=== PATIENT | male | born 1955 | race Caucasian/White ===

== ENCOUNTER 2016-11-13 07:35 | Day surgery (SDC) | payer MEDICARE ==
--- NOTE | 2016-11-09 10:25 | PCM.ANEPRE ---
Anesthesia Pre-Op Review Reason for Review: ef 30-35%- mod-severe COPD Additional Comments -Hx of ischemic cardiomyopathy on ASA, statin, BB. EF 35%. Assure patient optimized on day of surgery -Hx of mod-severe COPD on intermittent home O2. on inhaled steroid, long acting anticholenergic and short acting beta agonist, as prescribed by Pulmonology. Ideally, patients would be on LONG acting Beta agonist (LABA) with evidence of decreased exacerbations. I am unclear why he is NOT on LABA. There is some evidence that LABA are at increased risks of arrhythmia with these medications. He is obviously a low EF in Afib, and may not tolerate arrhythmia, explaining why he does not have a LABA. Per surgeon note, patient will be done with sedation. Given that we can likely not instrument the airway, I would NOT delay this case for months to initiate LABA. However, if patient refuses MAC, regional, or epidural/spinal (in setting of low EF, would have to be cautious--and if off coumadin with normal INR), or anesthesia feels that he is a poor candidate for these options, and GA is necessary, anesthesia may elect to cancel this case for further optimization by pulmonary. I feel this is very unlikely though, and I do not feel inclined to cancel at this time. Jacques Raphael MD November 09, 2016 10:25
[~2016-11-13] VITALS: Ht 180.3 cm; Wt 139.2 kg
[~2016-11-13 07:35] MED LIST: ACLI400A2 IH; ALBU8.5H2 INHALATION; ALPH200C3 PO; AMMO385C5 TP; ASPI-973 PO; ATRINH INH; CARV12.5 PO; CHOL200025 PO; CLOB15CR3 TOP; CYCL10TA9 PO; CeFAZolin Inj 2 GM in IV Premix 1 EACH IV ONE; CeFAZolin Inj 3 GM in IV Premix IV ONE; DIGO125T73 PO; DOCU-41 PO; DULO30CA50 PO; ECON15CR10 TOP; FLUT12AE8 IH; FLUT16SP NS; GABA-502 PO; GABA600T2 PO; INSLIS SUBQ; INSU100I18 SUBQ; INSU100V7 SUBQ; KEN25CR EXT; KTC2C15 TP; LIP40 PO; LISI2.5T PO; MUPI22OI2 TOP; NITR0.4T SL; OMEP20TA86 PO; POLY17PO6 PO; SENN-133 PO; TAMS0.4C29 PO; TORS20TA3 PO; [UNRECOGNIZED DRUG - CODE] TP
[2016-11-13] MEDS ORDERED: Propofol 10,000 mCg/mL 20 mL Inj ONE (07:36)
[2016-11-13] MEDS ORDERED: Ketamine 10 mg/mL 20 mL Inj ONE (07:36)
[2016-11-13] MEDS ORDERED: WARF5TAB7 PO (08:09)
[2016-11-13 08:13] VITALS: BP 142/74; PULSE 78; RESP 16; O2SAT 100
[2016-11-13] MEDS: Lactated Ringer's 1,000 ML IV SCH ×2 (08:21→09:28)
[2016-11-13] MEDS ORDERED: Insulin LISPRO 300 Unit/3 mL Inj ONE (08:21)
[2016-11-13] MEDS ORDERED: Insulin LISPRO 300 Unit/3 mL Inj SUBQ ONE (08:40)
--- NOTE | 2016-11-13 09:27 | PCM.HPANE ---
Patient Data Date of Service: November 13, 2016 Surgeon Admitting Provider: Attending Provider:Jethro Guilolry MD Primary Care Physician:Geovanny Maya MD Other Provider:Ubaldo Khoury Anesthesia Reason for Visit Polyneuropathy Ht/WT & BMI Height (Feet): 5 Height (Inches): 11 Weight (Kilograms): 139.25 Body Mass Index 42.00 Allergies Coded Allergies: No Known Allergies (Unverified , 06/24/16) Past Anesthesia History Anesthesia History: Denies:: Abnormal Airway, Anesthesia Reactions, Difficult Intubation, Fam Anesthesia Reaction, Fam Malignant Hypertherm, Malignant Hyperthermia Diabetes History Hx Diabetes?: Yes Type of Diabetes: Type II Glycemic Control: Insulin & Oral Medication Current Bedside Blood Glucose: 223 MRSA MRSA: No Medications Blood Thinner: Aspirin, Coumadin Home Meds Incl Beta Jannet: Yes Date Beta Jannet Taken: November 13, 2016 Time Beta Jannet Taken: 0600 Reported Medications Warfarin Sodium 5 Mg Tablet5 Mg PO DAILY 30 Days Ref 0 11/13/16 Cholecalciferol (Vitamin D3) (Vitamin D3)2,000 Unit Tablet2,000 Unit PO DAILY 11/08/16 Urea/Hydrophilic Cream (Betamide Lotion)120 Ml Skkeke795 Ml TP DAILY 11/08/16 Aclidinium Dexter (Tudorza Pressair)400 Mcg Aer.pow.ba400 Mcg IH DAILY 11/08/16 Triamcinolone Acet (Triamcinolone Acetonide Cream)1 Applic/0.25 Gm Cr1 Applic EXT BID #60 GM Ref 0 11/08/16 Torsemide 20 Mg Tacpav21 Mg PO DAILY 30 Days Ref 0 11/08/16 Tamsulosin ER 0.4 Mg Cap.er.24h0.4 Mg PO DAILY Ref 0 11/08/16 Sennosides (Senna)8.6 Mg Tablet8.6 Mg PO PRN For Constipation 11/08/16 Albuterol HFA (Proair HFA)8.5 Gm Hfa.aer.ad2 Puffs INHALATION Q4H PRN For Shortness of Breath #1 INHALER 11/08/16 Omeprazole 20 Mg Tablet.dr20 Mg PO DAILY 11/08/16 Nitroglycerin SL (Nitrostat)0.4 Mg Tab.subl0.4 Mg SL Q5MIN PRN For Chest Pain # 1 BOTTLE 11/08/16 Mupirocin (Mupirocin Ointment)22 Gm Oint...g.1 Applic TOP TID #1 TUBE Ref 0 11/08/16 Polyethylene Glycol 3350 (Miralax)17 Gm Powd.pack17 Gm PO DAILY 11/08/16 Lisinopril 2.5 Mg Tablet2.5 Mg PO DAILY 30 Days Ref 0 11/08/16 Atorvastatin (Lipitor)40 Mg Jbklmt05 Mg PO DAILY Ref 0 11/08/16 Insulin Glargine (Lantus U100 Insulin Vial)100 Unit/Ml Vial50 Unit SUBQ BID #1 VIAL Ref 0 11/08/16 Ketoconazole 15 Gm Cream..g.15 Gm TP PRN skin irritation 11/08/16 Insulin Lispro (HumaLOG U100 Insulin Pen)100 Unit/1 Ml Insuln.pen20 Unit SUBQ QPM #1 PENINJ Ref 0 Blood Sugar Lispro Correction <151 0 units 151-175 1 unit 176-200 2 units 201-225 3 units 226-250 4 units 251-275 5 units 276-300 6 units 301-325 7 units 326-350 8 units 351-375 9 units 376-400 10 units >400 12 units Check blood sugars before meals and at bedtime. Use correction factor only before meals. 11/08/16 Insulin Human Lispro (HumaLOG U100 Insulin Vial)100 Unit/Ml Unit16 Unit SUBQ am/ noon #1 VIAL Ref 0 Check blood sugars before meals and at bedtime. Use correction factor only before meals. Blood Sugar Lispro Correction: <151, 0 units; 151-175, 1 unit; 176-200, 2 units; 201-225, 3 units; 226-250, 4 units; 251-275, 5 units; 276-300, 6 units; 301-325, 7 units; 326-350, 8 units; 351-375, 9 units; 376-400, 10 units; >400, 12 units. 11/08/16 Gabapentin 600 Mg Szjzgz909 Mg PO TID Ref 0 11/08/16 Gabapentin 300 Mg Wfzfnde091 Mg PO HS Ref 0 11/08/16 Fluticasone Propionate (Fluticasone Propionate Nasal)16 Gm [place].susp2 [place] NS BID #16 GM Ref 0 11/08/16 Fluticasone Propionate (Flovent HFA 110 mcg)12 Gm Aer.w.adap1 Puff IH BID #12 GM Ref 0 11/08/16 Econazole Nitrate 15 Gm Cream..g.1 Appl TOP BID #1 TUBE 11/08/16 Duloxetine 30 Mg Capsule.dr30 Mg PO DAILY Ref 0 11/08/16 Digoxin 125 Mcg Tresbu276 Mcg PO DAILY #30 TABLET Ref 0 11/08/16 Cyclobenzaprine 10 Mg Tablet5 Mg PO TID PRN Spasm 11/08/16 Carvedilol (Coreg)12.5 Mg Tvtnod29.5 Mg PO BID Ref 0 11/08/16 Docusate Sodium (Colace)100 Mg Ppjkrfw694 Mg PO TID PRN For Constipation Ref 0 11/08/16 Clobetasol Propionate/Emoll (Clobetasol Emollient 0.05% Crm)15 Gm Cream..g.1 Appl TOP BID #1 TUBE 11/08/16 Ipratropium Dexter (Atrovent HFA)200 Puff/12.9 Gm Inhaler2 Puff INH QID #1 INH Ref 0 11/08/16 Aspirin 81 Mg Mtfubr30 Mg PO DAILY Ref 0 11/08/16 Ammonium Lactate 140 Gm Cream..g.140 Gm TP DAILY 11/08/16 Alpha Lipoic Acid 200 Mg Zslrsjw455 Mg PO BID 11/08/16 Discontinued Reported Medications Aspirin Chew 81 Mg Tab.chew81 Mg PO DAILY 10/08/13 Nitroglycerin SL (Nitrostat)0.4 Mg Tab.subl0.4 Mg SL Q5MIN PRN For Chest Pain 10/08/13 Metformin 1,000 Mg Tablet1,000 Mg PO BID 30 Days Ref 0 10/08/13 Omeprazole Magnesium (Omeprazole)20 Mg Capsule.dr20 Mg PO DAILYAC 30 Days Ref 0 10/08/13 Warfarin Sodium 5 Mg Tkrodk06 Mg PO DAILY 30 Days Ref 0 10/08/13 Warfarin Sodium 2.5 Mg Tablet2.5 Mg PO Tuesdays 30 Days Ref 0 Take one tablet IN ADDITION TO the 10mg tablet on TUESDAYS ONLY. 10/08/13 Docusate Sodium (Colace)100 Mg [place]277 Mg PO BID PRN For Constipation 30 Days Ref 0 10/08/13 Carvedilol (Coreg)12.5 Mg Olafya58.5 Mg PO BIDWM 10/08/13 Tamsulosin ER 0.4 Mg Cap.er.24h0.4 Mg PO DAILY 30 Days Ref 0 10/08/13 Gabapentin 600 Mg Nbtabu637 Mg PO TID 10/08/13 Gabapentin-Expunged Drug, Do Not Renew! (Neurontin-Expunged Drug, Do Not Renew!) 300 Mg Epxzfvh301 Mg PO HS 03/17/13 Potassium Chl-Expunged Drug, Do Not Renew! (U-Utt-Hvevbilk Drug, Do Not Renew!) 20 Meq Tab.er.prt20 Meq PO DAILY 11/03/12 Insulin Lispro-Expunged Drug, Do Not Renew! (Humalog-Expunged Drug, Do Not Renew !)100 U/Ml Vial5 U SQ Lunch & Dinner Inject subcutaneously as per insulin sliding scale protocol 11/03/12 Insulin GLARGine-Expunged Drug, Do Not Renew! (Lantus-Expunged Drug, Do Not Renew!)100 Unit/Ml Unit50 Unit SUBQ BID LD 15U SQ 03/16/ PM 11/03/12 Digoxin-Expunged Drug, Do Not Renew! 125 Mcg Tablet0.25 Mg PO DAILY #30 TAB 11/03/12 Discontinued Scripts Atorvastatin Calcium 40 Mg Uplibf86 Mg PO DAILY #30 TABLET Prov:ROMY ADAN P DO 06/25/16 Azithromycin (Zithromax)250 Mg Afmxsd219 Mg PO DAILY #4 TABLET Prov:ROMY ADAN P DO 06/25/16 Duloxetine (Cymbalta)30 Mg Capsule.dr30 Mg PO DAILY #30 Prov:ROMY DAAN P DO 06/25/16 Lisinopril 5 Mg Tablet2.5 Mg PO DAILY #30 TABLET Prov:ROMY ADAN P DO 06/25/16 Prednisone (Deltasone)20 Mg Hweaci45 Mg PO DAILY #4 TABLET Prov:ROMY ADAN P DO 06/25/16 Torsemide (Demadex)20 Mg Icjptg63 Mg PO DAILY #30 TABLET Prov:ROMY ADAN P DO 06/25/16 Acetaminophen/Cod-Expunged Drug, Do Not Renew (Tylenol w/Codeine #3-Expunged Drug, Do Not Re)1 Each Tablet1-2 Tab PO Q4-6H #14 TAB Ref 0 FOR PAIN Prov:Wood Ramirez PA-C 03/18/13 History History of ENT Problems?: No HEENT History: Denies:: Abnormal Airway Cataracts Difficult Intubation Dysphagia Hearing Problem Sinus Problem Denture Type: Full- Upper Teeth Condition: Missing Teeth Other History/Comment Patient advised to remove dentures. Pt declines. Discussed possible damage to dentures. Hx of Heart Problems?: Yes Cardiovascular History: Positive for:: Atrial Fibrillation Cardiac Surgery (Stent to RCA Sep 2012) Chest Pain Edema Irregular Heartbeat (A fib) Pacemaker Denies:: AICD Congestive Heart Failure Heart Murmur Hypertension Thrombophlebitis Valvular Heart Disease Hx of Respiratory Problem?: Yes Respiratory History: Positive for:: Dyspnea (with walkin uphill or taking stairs) Oxygen Administration (occasional supplemental O2) Denies:: Asthma COPD Chest Surgery Cough Emphysema Hemoptysis Pneumonia Tuberculosis Use of C-PAP Machine Hx Neurologic Problems?: Yes Neurological History: Positive for:: CVA (Aug 2012 - can't always express thoughts.) Denies:: Dementia Dizziness Headaches Parkinson's Disease Seizures Other Neurological Pertinent: polyneuropathy- ? dyemyleinating- current admission problem Hx of GI Problems?: No Hx of Problems?: No HX of Peritoneal Dialysis: No Male Hx: Denies:: Prostate Problems Skin History: Denies:: History Skin Disorders? Pressure Ulcers Hx Musculoskeletal Problems?: No Musculoskeletal History: Denies:: Joint Replacement Musculoskeletal Trauma Hx of Psycho/Social Problems?: No Psycho Social History: Denies:: Anxiety Bipolar Disorder Hx Depression Suicide Attempt Hx Surgeries?: Yes (pacemaker 03/17/13) Hx Any Other Health Problems?: Yes Other History: Positive for:: Hospitalization (CVA) Denies:: Cancer Endocrine Disease Thyroid Disease History Blood Transfusions: Denies:: Blood Transfuse Reaction Blood Transfusions Hx Diabetes: YesBedside Blood Glucose: 223 Hx Alcohol Use: NoHx Substance Use: No Smoking Status: Former Smoker Have You Smoked inLast 12 mo: No Stop/Bang S-Snoring: Do You Snore Loudly: No T-Tired: feel tired, fatigued: No O-Obsered: Observed not breath: No P-Blood Pressure: treated: Yes B- Body Mass Index > 35 kg/m2: Yes A- Age over 50: Yes N- Neck Large Circumference: Yes G- Gender Male: Yes JEANNIE Total Score: 5 JEANNIE Risk Assessment: High Risk, =/>3 Yes JEANNIE Category 3: Yes Risk Assessment Category Category 1A: Patient has history of documented sleep apnea, and HAS NOT received any narcotic, sedative or anesthesia administration during this stay. Category 1B: Patient has history of documented sleep apnea, and HAS received any narcotic , sedative or anesthesia administration during this stay Category 2: Patient has SUSPECTED Obstructive Sleep Apnea, and HAS received any narcotic , sedative or anesthesia administration during this stay. Category 3: Patient has SUSPECTED Obstructive Sleep Apnea and HAS NOT received narcotic, sedative or anesthesia administration during this stay. Category 4: Outpatient in Procedural Areas with known sleep apnea or who screen positive for High Risk via the STOP/BANG questionnaire. Exam Exam Vital Signs Vital Signs Date Time Temp Pulse Resp B/P Pulse Ox O2 Delivery O2 Flow Rate FiO2 11/13/16 08:13 36.2 78 16 142/74 100 Room Air General Appearance: Alert, Oriented X3, Cooperative HEENT/AIRWAY: MP 2 Lungs: Clear to Auscultation Heart: Exam Unremarkable Meds/Labs/Diagnostics Admission Meds Current Medications Lactated Ringer's (Lr) 1,000 ml @ 120 mls/hr Q8H20M IV Last administered on t 08:21; Start 11/13/16 at 05:00; Stop 11/13/16 at 13:19 Bedside Blood Glucose: 223 Labs Test 11/13/16 08:00 Prothrombin Time 10.7sec (8.1-12.5) Prothromb Time International Ratio 1.00ratio Plan Impression Patient chart reviewed, patient interviewed and anesthestic plan with risks, benefits, and alternatives discussed, and informed consent obtained. NPO per Anesth. Guidelines: Yes ASA Physical Status: ASA3 Severe Disease Anesthetic Plan: MAC Bene/Risks/Altern/Consents: Yes HP Complete Prior to Induction: Yes Jacques Jimenez MD November 13, 2016 09:27
[2016-11-13] MEDS ORDERED: Bupivacaine-MPF 0.5% 30 mL Inj INFILTRATE ONE (09:52)
[2016-11-13] MEDS ORDERED: Lactated Ringer's 500 ML IV PRN (10:12)
[2016-11-13] MEDS ORDERED: Lactated Ringer's 1,000 ML IV SCH (10:12)
[2016-11-13] MEDS ORDERED: HYDROcodone-APAP 5-325 mg Tablet PO PRN (10:15)
[2016-11-13] MEDS ORDERED: HYDROmorphone 1 mg/mL Inj IVPUSH PRN (10:15)
[2016-11-13] MEDS ORDERED: Dexamethasone 4 mg/mL Inj IVPUSH PRN (10:15)
[2016-11-13] MEDS ORDERED: fentaNYL-PF 50 mCg/mL 2 mL Inj IVPUSH PRN (10:15)
[2016-11-13] MEDS ORDERED: Phenylephrine 10,000 mCg/mL Inj IVPUSH PRN (10:15)
[2016-11-13] MEDS ORDERED: Ondansetron 2 mg/mL 2 mL Inj IVPUSH PRN (10:15)
[2016-11-13] MEDS ORDERED: MetoCLOpramide 5 mg/mL 2 mL Inj IVPUSH PRN (10:15)
[2016-11-13] MEDS ORDERED: EPHEDrine Sulfate 50 mg/mL Inj IVPUSH PRN (10:15)
--- NOTE | 2016-11-13 10:17 | PCM.DISURG ---
Surgical Discharge Instruction Date of Service November 13, 2016 Dates of Hospitalization Date of Hospital Admission Providers Admitting Physician: Primary Care Physician: Geovanny Maya MD Attending Physician: Jethro Guillory MD Discharge Diagnosis Discharge Diagnosis Peripheral neuropathy Diet Discharge Diet: No restrictions Activity Discharge Activity-General: No restrictions Dressing and Incisional Care Dressing Care: Allow Steri Stripes to fall off, Remove outer dressing after 24 hrs Hygiene: May shower after (24 hours) Follow Up Plan Follow Up Plan In the general surgery [place] postoperative clinic in 2-3 weeks for a wound check. Pathology will be discussed with Dr. Cartagena when available. Call your provider for: Fever (over 101.5), Discharge @ incision, pus discharge Jethro Guillory MD November 13, 2016 10:17
--- NOTE | 2016-11-13 10:23 | PCM.SURGOP ---
Surgical Operative Report Date of Service: November 13, 2016 Pre Operative Diagnosis Polyneuropathy Post Operative Diagnosis Same Procedure: Right sural nerve biopsy Surgeon and Home Visitor: Surgeon: Jethro Guillory MD Assistants: Mateo Tinoco PA-C Indication for Procedure 61-year-old man who had a stroke in 2012 with right-sided weakness, who has had progressive neck pain and neuropathy since that time. He had nerve conduction studies which showed prolonged onset latency and decreased velocity, suggestive of a severe sensorimotor polyneuropathy, possible demyelinating disorder. After discussion of risks and benefits, he agreed to proceed with a right sural nerve biopsy. Findings: The right sural nerve was grossly normal, 4 cm was resected and sent to the [facility] for pathology. Procedure Details Procedural sedation was achieved. He was placed in the left lateral decubitus position, and the right leg was prepped and draped in wide sterile fashion. A procedural pause was performed according to the SCOAP checklist, and all were found to be in agreement. The skin was anesthetized with a mixture of 1% lidocaine and half percent Marcaine. A 5cm longitudinal incision was made along the lateral border of the Achilles tendon. Dissection was carried down through the subcutaneous tissue until the Achilles tendon was identified. Just superficial to the tendon, the right sural nerve and the right lesser saphenous vein were both identified. The right sural nerve was dissected free from the surrounding tissues. The proximal end was ligated with a 3-0 silk suture. 4 cm of nerve was dissected free distally and transected. This was sent fresh via billet inspector to the [facility] for pathologic analysis, according to their protocol. Hemostasis was adequate. The incision was closed with interrupted deep dermal 3 -0 Vicryl suture, and a running 4-0 Monocryl subcuticular stitch. Steri-Strips and sterile dressings were applied. At the end of the case all needle and sponge counts were correct 2. The patient was awakened from anesthesia without difficulty, and taken to the recovery room in satisfactory condition, having tolerated the procedure well. Complications There were no periprocedural complications identified. Surgical Specimen Removed: Yes Specimen sent to Pathology: Yes Surgical Specimen description: Right sural nerve Anesthetic Plan: MAC Grafts, Implants: None Output, Estimated Blood Loss: 20 Blood Administration during pak: No Drains: None Catheters: None copies to: Geovanny Maya MD; StrIvan malik MD, Joshua D MD November 13, 2016 10:23
[2016-11-13 10:30] VITALS: BP 105/52; PULSE 67; RESP 16; O2SAT 96
--- NOTE | 2016-11-13 11:04 | PCM.ANEP1 ---
Post Anesthesia Phase 1 PACU Phase 1 Assessment Date of Service: November 13, 2016 Vital Signs Vital Signs Date Time Temp Pulse Resp B/P Pulse Ox O2 Delivery O2 Flow Rate FiO2 11/13/16 08:13 36.2 78 16 142/74 100 Room Air Anesthetic Administered: MAC Level of Alertness: Awake, talking Pain: No Nausea or Vomiting: No Cardiovascular Function and Hy: Yes Oxygen Delivery: Room Air Lungs: Clear to Auscultation Jacques Jimenez MD November 13, 2016 11:04
== END 2016-11-13 23:59 | disposition home or self-care (01) ==
LOC: SAS 07:35
PROVIDERS: ATTEND Student in an Organized Health Care Education/Training Program
DX: G61.81 Chronic inflammatory demyelinating polyneuritis (principal); M79.661 Pain in right lower leg; I10 Essential (primary) hypertension; E78.5 Hyperlipidemia, unspecified; I48.0 Paroxysmal atrial fibrillation; I42.9 Cardiomyopathy, unspecified; I25.10 Atherosclerotic heart disease of native coronary artery without angina pectoris; E11.42 Type 2 diabetes mellitus with diabetic polyneuropathy; E11.49 Type 2 diabetes mellitus with other diabetic neurological complication; I63.9 Cerebral infarction, unspecified; R53.1 Weakness; J44.9 Chronic obstructive pulmonary disease, unspecified; E66.01 Morbid (severe) obesity due to excess calories; Z95.810 Presence of automatic (implantable) cardiac defibrillator; Z79.01 Long term (current) use of anticoagulants; Z87.891 Personal history of nicotine dependence; Z79.82 Long term (current) use of aspirin; Z79.4 Long term (current) use of insulin; Z68.41 Body mass index [BMI] 40.0-44.9, adult; Z79.84 Long term (current) use of oral hypoglycemic drugs; Z95.5 Presence of coronary angioplasty implant and graft; Z99.81 Dependence on supplemental oxygen
CPT/HCPCS: 36415; 64795; 85610; J0690; J7120